=== PATIENT | female | born 1990 | race Caucasian/White ===

== ENCOUNTER 2025-01-15 04:06 | Outpatient (CLI) | payer BC, SELFPAY | END 2025-01-15 04:07 | disposition home or self-care (01) | LOC: LBO 04:06 | PROVIDERS: Visit Provider Nurse Practitioner Family | DX: Z31.41 Encounter for fertility testing (principal) | CPT/HCPCS: 36415; 84144 ==

== ENCOUNTER 2025-02-19 09:45 | Outpatient (CLI) | payer SELFPAY ==
[2025-02-19 12:11] LABS: HCG Quant, Pregnancy 152 mIU/mL (1-3)
== END 2025-02-19 09:46 | disposition home or self-care (01) ==
LOC: LBO 09:47
PROVIDERS: Visit Provider Nurse Practitioner Family
DX: Z32.01 Encounter for pregnancy test, result positive (principal)
CPT/HCPCS: 36415; 84144; 84702

== ENCOUNTER 2025-03-17 20:12 | Outpatient (REF) | payer SELFPAY ==
[2025-03-17 17:50] LABS: Abs Immature Grans 0.03 10^3/uL (0.0-0.06); HCT 37.6 % (36.0-46.0); HGB 12.5 g/dL (11.2-15.7); Immature Grans % 0.3 %; MCH 30.8 pg (27.0-33.0); MCHC 33.2 % (32.0-36.0); MCV 93 fL (80-95); MPV 10.5 fL (8.0-11.0); Platelet Count 259 10^3/uL (130-400); RBC 4.06 10^6/uL (3.93-5.22); RDW 13.1 % (11.7-14.6); RDW-SD 44.8 fL; WBC 8.62 10^3/uL (4.4-10.8)
[2025-03-17 17:57] LABS: Glucose Negative (Negative)
[2025-03-17 18:08] LABS: Ferritin 14 ng/mL (7-271)
[2025-03-17 18:36] LABS: RBC 0-2 HPF (0-2); WBC Negative HPF (0-5)
== END 2025-03-17 20:13 | disposition home or self-care (01) ==
LOC: LBN 20:12
PROVIDERS: Visit Provider Midwife
DX: Z79.890 Hormone replacement therapy (principal); R53.82 Chronic fatigue, unspecified; Z36.84 Encounter for antenatal screening for fetal lung maturity
CPT/HCPCS: 86850; 81003; 81015; 82728; 84144; 85025; 87086

== ENCOUNTER 2025-04-03 12:07 | Outpatient (REF) | payer BC, SELFPAY | END 2025-04-03 12:08 | disposition home or self-care (01) | LOC: LBN 12:07 | PROVIDERS: Visit Provider Registered Nurse | DX: R30.0 Dysuria (principal) | CPT/HCPCS: 87086 ==